=== PATIENT | female | born 1975 | race Caucasian/White ===

== ENCOUNTER 2019-07-01 19:23 | Emergency (ER) | payer SELFPAY | END 2019-07-01 20:26 | disposition home or self-care (01) | LOC: ERS 19:23 | DX: L42 Pityriasis rosea (principal); I25.2 Old myocardial infarction; J45.909 Unspecified asthma, uncomplicated; I10 Essential (primary) hypertension; E03.9 Hypothyroidism, unspecified; F32.9 Major depressive disorder, single episode, unspecified; Z79.899 Other long term (current) drug therapy | CPT/HCPCS: 99282 ==